=== PATIENT | male | born 1955 | race African-American/Black ===

== ENCOUNTER 2018-12-21 14:32 | Inpatient (IN) ==
[2018-12-21] MEDS ORDERED: PANTOPRAZOLE 40 MG VIAL IV STA (15:00)
[2018-12-21] MEDS ORDERED: SODIUM CHLORIDE 0.9% 1,000 ML IV PRN ×2 (15:01→15:46)
[2018-12-21 15:11] LABS: Basophils % 0.1 % (0.0-0.8); Immature Granulocytes Absolute 0.15 #; Lymphocytes # 0.8 10*3/uL (1.4-4.0); Lymphocytes % 5.2 % (21.2-54.2); Mean Corpuscular HGB Conc 24.8 GM/DL (32-36); Mean Corpuscular Volume 58.2 FL (87-102); Mean Platelet Volume 10.7 FL (9.6-12.0); Monocytes % 4.3 % (1.7-12.7); Neutrophils % 89.4 % (38.7-73.9); Platelet Count 476 T/CUMM (130-400); Red Blood Count 2.49 MC/CUMM (3.8-5.5); Red Cell Distribution Width 21.9 % (9.3-17.3); White Blood Count 15.1 T/CUMM (4-12)
[2018-12-21 15:16] LABS: Hematocrit 14.5 VOL% (42.0-52.0); Hemoglobin 3.6 GM/DL (14.0-18.0)
[2018-12-21 15:17] LABS: PT Patient Result 11.2 SECS (9.6-12.2); Partial Thromboplastin Time 22.2 SECS (20.8-36.0)
[2018-12-21] MEDS ORDERED: ZALEPLON 5 MG CAPSULE PO PRN (15:46)
[2018-12-21] MEDS ORDERED: MORPHINE 4 MG/1 ML VIAL IV PRN (15:46)
[2018-12-21] MEDS ORDERED: ONDANSETRON 4 MG/2 ML VIAL IV PRN (15:46)
[2018-12-21] MEDS ORDERED: ACETAMINOPHEN 325 MG TABLET PO PRN (15:46)
[2018-12-21] MEDS ORDERED: NICOTINE 21 MG/24 HR PATCH TRANSDERM PRN (15:46)
[2018-12-21 15:47] LABS: Alanine Aminotransferase 12 U/L (16-61); Alkaline Phosphatase 76 U/L (45-117); Aspartate Amino Transferase 14 U/L (0-37); Bilirubin,Total < 0.39 MG/DL (0.2-1.0); Blood Urea Nitrogen 10 MG/DL (7-18); Calcium 8.5 MG/DL (8.5-10.1); Estimated Glom Filtration Rate 100 ML/MIN; Glucose 116 MG/DL (74-106); Total Protein 7.7 G/DL (6.4-8.3)
[2018-12-21 15:57] LABS: Apearance,Urine CLEAR (Clear); Bilirubin,Urine Negative (Negative); Blood, Urine Negative (Negative); Glucose,Urine (UA) Negative (Negative); Hyaline Casts,Urine 1 /LPF (0-3); Ketones,Urine Negative (Negative); Mucus,Urine Occasional /LPF (Occasional); Nitrite,Urine Negative (Negative); Protein,Urine Negative; RBC,Urine 2 /HPF (0-4); Squamous Epithelial Cell,Urine Occasional /HPF (0-10); Urine Color Yellow (Yellow); Urine Specific Gravity 1.031 (1.001-1.035); WBC,Urine 9 /HPF (0-6)
[2018-12-21 16:25] LABS: ABG Base Excess -2.7 MMOL/L (-2.5-2.5); ABG HCO3 21.2 MMOL/L (20-26); ABG Oxygen Saturation 96.6 % (95-100); ABG PCO2 30.5 MM HG (35-48); ABG PH 7.459 (7.35-7.45); ABG PO2 87.3 MM HG (80-95); ABG TCO2 22.1 MMOL/L (23-27)
[2018-12-21] MEDS: PIPERACILLIN/TAZOBACTAM 3,375 MG in SODIUM CHLORIDE 0.9% 100 ML IV SCH ×2 (16:34→23:55)
[2018-12-21] MEDS: SODIUM CHLORIDE 0.9% 1,000 ML IV SCH (17:22)
[2018-12-21] MEDS ORDERED: VANCOMYCIN INJ 1,000 MG in SODIUM CHLORIDE 0.9% 250 ML IV ONE (20:00)
[2018-12-21] MEDS: PANTOPRAZOLE 40 MG VIAL IV SCH (20:18)
[2018-12-21 20:47] LABS: Hematocrit 19.7 VOL% (42.0-52.0); Platelet Count 375 T/CUMM (130-400)
[2018-12-21 20:51] LABS: Hemoglobin 5.7 GM/DL (14.0-18.0)
[2018-12-22] MEDS: SODIUM CHLORIDE 0.9% 1,000 ML IV SCH ×4 (01:22→18:15)
[2018-12-22 03:26] LABS: Basophils % 0.4 % (0.0-0.8); Eosinophils % 0.1 % (0.00-10.9); Hematocrit 23.5 VOL% (42.0-52.0); Immature Granulocytes % 0.5 %; Immature Granulocytes Absolute 0.05 #; Lymphocytes # 1.6 10*3/uL (1.4-4.0); Lymphocytes % 16.1 % (21.2-54.2); Mean Corpuscular HGB Conc 29.8 GM/DL (32-36); Mean Corpuscular Volume 71.9 FL (87-102); Mean Platelet Volume 10.1 FL (9.6-12.0); Monocytes % 7.7 % (1.7-12.7); Neutrophils % 75.2 % (38.7-73.9); Platelet Count 309 T/CUMM (130-400); Red Blood Count 3.27 MC/CUMM (3.8-5.5); White Blood Count 9.6 T/CUMM (4-12)
[2018-12-22 03:47] LABS: PT Patient Result 11.2 SECS (9.6-12.2); Partial Thromboplastin Time 29.5 SECS (20.8-36.0)
[2018-12-22 04:02] LABS: % Iron Saturation 51.8 % (18-50); Ferritin 6.7 ng/ml (26-388)
[2018-12-22 04:07] LABS: Albumin 2.3 G/DL (3.4-5.0); Bilirubin,Total 1.7 MG/DL (0.2-1.0); Calcium 7.9 MG/DL (8.5-10.1); Osmolality,Calculated 276.4 MOS/KG (273-304); Risk Ratio 3.13; Thyroid Stimulating Hormone 1.68 uIU/ml (0.358-3.74); VLDL CHOLESTEROL 11.8 MG/DL
[2018-12-22 04:33] LABS: Hypochromasia 2+; Platelet Estimate Adequate
[2018-12-22 05:10] LABS: Folate 5.2 NG/ML (5.4-24.0)
[2018-12-22 05:40] LABS: Cancer Antigen 19-9 2.3 U/ML (0-37)
[2018-12-22] MEDS: PIPERACILLIN/TAZOBACTAM 3,375 MG in SODIUM CHLORIDE 0.9% 100 ML IV SCH ×3 (09:44→23:49)
[2018-12-22] MEDS: PANTOPRAZOLE 40 MG VIAL IV SCH ×2 (09:45→20:52)
[2018-12-22] MEDS: VANCOMYCIN INJ 750 MG in SODIUM CHLORIDE 0.9% 250 ML IV SCH ×2 (09:45→20:51)
[2018-12-22] MEDS: FOLIC ACID 1 MG TABLET PO SCH (09:46)
[2018-12-22] MEDS: MULTIVITAMIN (CENTRUM) TABLET PO SCH (09:46)
[2018-12-22] MEDS: THIAMINE 200 MG/2 ML VIAL IV SCH (10:01)
[2018-12-22 10:44] LABS: Hematocrit 29.8 VOL% (42.0-52.0)
[2018-12-23 04:58] LABS: Basophils % 0.4 % (0.0-0.8); Hematocrit 30.5 VOL% (42.0-52.0); Hemoglobin 9.2 GM/DL (14.0-18.0); Immature Granulocytes % 0.7 %; Immature Granulocytes Absolute 0.07 #; Lymphocytes # 1.3 10*3/uL (1.4-4.0); Lymphocytes % 13.2 % (21.2-54.2); Mean Corpuscular HGB Conc 30.2 GM/DL (32-36); Mean Corpuscular Volume 75.5 FL (87-102); Mean Platelet Volume 9.8 FL (9.6-12.0); Monocytes % 7.8 % (1.7-12.7); NRBC # 0.02 10*3/uL; Neutrophils % 77.9 % (38.7-73.9); Platelet Count 263 T/CUMM (130-400); Red Blood Count 4.04 MC/CUMM (3.8-5.5)
[2018-12-23 05:05] LABS: PT Patient Result 10.9 SECS (9.6-12.2)
[2018-12-23 05:21] LABS: Alanine Aminotransferase < 9 U/L (16-61); Albumin 2.2 G/DL (3.4-5.0); Alkaline Phosphatase 58 U/L (45-117); Aspartate Amino Transferase 9 U/L (0-37); Blood Urea Nitrogen 5 MG/DL (7-18); Calcium 7.6 MG/DL (8.5-10.1); Estimated Glom Filtration Rate 117 ML/MIN; Glucose 84 MG/DL (74-106); Osmolality,Calculated 274.4 MOS/KG (273-304); Total Protein 5.8 G/DL (6.4-8.3)
[2018-12-23 05:32] LABS: Hypochromasia 1+
[2018-12-23 05:33] LABS: Platelet Estimate Adequate
[2018-12-23] MEDS: PIPERACILLIN/TAZOBACTAM 3,375 MG in SODIUM CHLORIDE 0.9% 100 ML IV SCH ×3 (07:59→23:53)
[2018-12-23] MEDS: PANTOPRAZOLE 40 MG VIAL IV SCH ×2 (08:35→20:50)
[2018-12-23] MEDS: FOLIC ACID 1 MG TABLET PO SCH (08:36)
[2018-12-23] MEDS: MULTIVITAMIN (CENTRUM) TABLET PO SCH (08:36)
[2018-12-23] MEDS: THIAMINE 200 MG/2 ML VIAL IV SCH (08:37)
[2018-12-23] MEDS: SODIUM CHLORIDE 0.9% 1,000 ML IV SCH (11:23)
[2018-12-23] MEDS: VANCOMYCIN INJ 750 MG in SODIUM CHLORIDE 0.9% 250 ML IV SCH ×2 (11:25→23:54)
[2018-12-23] MEDS ORDERED: MAGNESIUM SULF RIDER 4 GM in PREMIX 1 EACH IV PRN (13:50)
[2018-12-23] MEDS: MAGNESIUM SULF RIDER 2 GM in PREMIX 1 EACH IV PRN (14:20)
[2018-12-24] MEDS: SODIUM CHLORIDE 0.9% 1,000 ML IV SCH ×3 (03:47→16:00)
[2018-12-24 04:36] LABS: Basophils # 0.1 10*3/uL (0.0-0.2); Basophils % 0.6 % (0.0-0.8); Eosinophils % 0.2 % (0.00-10.9); Hemoglobin 9.3 GM/DL (14.0-18.0); Immature Granulocytes % 0.6 %; Immature Granulocytes Absolute 0.07 #; Lymphocytes # 1.5 10*3/uL (1.4-4.0); Lymphocytes % 11.8 % (21.2-54.2); Mean Corpuscular Volume 74.6 FL (87-102); Monocytes % 8.8 % (1.7-12.7); Platelet Count 291 T/CUMM (130-400); Red Blood Count 4.02 MC/CUMM (3.8-5.5); White Blood Count 12.6 T/CUMM (4-12)
[2018-12-24 04:38] LABS: INR 1.1; PT Patient Result 11.5 SECS (9.6-12.2)
[2018-12-24 04:50] LABS: Alanine Aminotransferase < 9 U/L (16-61); Albumin 2.1 G/DL (3.4-5.0); Alkaline Phosphatase 57 U/L (45-117); Aspartate Amino Transferase 10 U/L (0-37); Blood Urea Nitrogen 2 MG/DL (7-18); Calcium 7.5 MG/DL (8.5-10.1); Estimated Glom Filtration Rate 123 ML/MIN; Glucose 86 MG/DL (74-106); Osmolality,Calculated 269.7 MOS/KG (273-304); Total Protein 5.8 G/DL (6.4-8.3)
[2018-12-24 04:55] LABS: Hypochromasia 1+; Platelet Estimate Adequate
[2018-12-24] MEDS: PIPERACILLIN/TAZOBACTAM 3,375 MG in SODIUM CHLORIDE 0.9% 100 ML IV SCH (08:45)
[2018-12-24] MEDS: FOLIC ACID 1 MG TABLET PO SCH (08:48)
[2018-12-24] MEDS: THIAMINE 200 MG/2 ML VIAL IV SCH (08:48)
[2018-12-24] MEDS: MULTIVITAMIN (CENTRUM) TABLET PO SCH (08:48)
[2018-12-24] MEDS: PANTOPRAZOLE 40 MG VIAL IV SCH (08:49)
[2018-12-24] MEDS: MAGNESIUM SULF RIDER 2 GM in PREMIX 1 EACH IV PRN (09:20)
[2018-12-24] MEDS: POTASSIUM CHLORIDE 20 MEQ TABLET PO PRN ×3 (09:21→13:53)
[2018-12-24] MEDS ORDERED: VANCOMYCIN INJ 1,000 MG in SODIUM CHLORIDE 0.9% 250 ML IV SCH (12:00)
[2018-12-24] MEDS ORDERED: POLYETHYLENE GLYCOL POWDER 255 GM BOTTLE PO ONE (12:00)
[2018-12-24] MEDS ORDERED: BISACODYL 5 MG TABLET PO ONE ×2 (12:00)
[2018-12-24] MEDS ORDERED: POTASSIUM CHLORIDE 20 MEQ TABLET PO ONE (14:13)
[2018-12-24] MEDS ORDERED: CYANOCOBALAMIN 1000 MCG/1 ML VIAL IM ONE (14:38)
[2018-12-24] MEDS: cefTRIAXone 2,000 MG in SYRINGE 1 EACH IV SCH (15:47)
[2018-12-24] MEDS ORDERED: POLYETHYLENE GLYCOL 3350/ELECTROLYTES 4,000 ML BOTTLE PO ONE (18:00)
[2018-12-25 04:36] LABS: Basophils # 0.1 10*3/uL (0.0-0.2); Basophils % 0.6 % (0.0-0.8); Eosinophils % 0.4 % (0.00-10.9); Hematocrit 29.4 VOL% (42.0-52.0); Immature Granulocytes % 0.5 %; Immature Granulocytes Absolute 0.05 #; Lymphocytes # 1.5 10*3/uL (1.4-4.0); Lymphocytes % 15.3 % (21.2-54.2); Mean Corpuscular HGB Conc 30.6 GM/DL (32-36); Mean Corpuscular Volume 76.2 FL (87-102); Mean Platelet Volume 10.4 FL (9.6-12.0); Monocytes % 9.7 % (1.7-12.7); Neutrophils % 73.5 % (38.7-73.9); Platelet Count 303 T/CUMM (130-400); Red Blood Count 3.86 MC/CUMM (3.8-5.5); White Blood Count 10.1 T/CUMM (4-12)
[2018-12-25 05:00] LABS: Alanine Aminotransferase < 9 U/L (16-61); Albumin 2.1 G/DL (3.4-5.0); Alkaline Phosphatase 56 U/L (45-117); Aspartate Amino Transferase 9 U/L (0-37); Blood Urea Nitrogen 3 MG/DL (7-18); Estimated Glom Filtration Rate 125 ML/MIN; Glucose 86 MG/DL (74-106); Osmolality,Calculated 272.5 MOS/KG (273-304); Total Protein 5.9 G/DL (6.4-8.3)
[2018-12-25] MEDS ORDERED: POLYETHYLENE GLYCOL POWDER 255 GM BOTTLE PO ONE (08:43)
[2018-12-25] MEDS: THIAMINE 100 MG TABLET PO SCH (10:04)
[2018-12-25] MEDS: FOLIC ACID 1 MG TABLET PO SCH (10:04)
[2018-12-25] MEDS: CYANOCOBALAMIN 500 MCG TABLET PO SCH (10:04)
[2018-12-25] MEDS: PANTOPRAZOLE 40 MG TABLET PO SCH (10:04)
[2018-12-25] MEDS: MULTIVITAMIN (CENTRUM) TABLET PO SCH (10:04)
[2018-12-25 14:35] LABS: PT Patient Result 11.1 SECS (9.6-12.2)
[2018-12-25] MEDS: cefTRIAXone 2,000 MG in SYRINGE 1 EACH IV SCH (17:30)
[2018-12-26] MEDS: LACTATED RINGERS 1,000 ML IV SCH ×2 (08:56→20:00)
[2018-12-26] MEDS ORDERED: PROPOFOL 200 MG/20 ML VIAL IV ONE (10:00)
[2018-12-26] MEDS ORDERED: LIDOCAINE 100 MG/5 ML SYRINGE ONE (10:00)
[2018-12-26] MEDS: VANCOMYCIN INJ 1,000 MG in SODIUM CHLORIDE 0.9% 250 ML IV SCH (13:45)
[2018-12-26] MEDS: FOLIC ACID 1 MG TABLET PO SCH (13:49)
[2018-12-26] MEDS: PANTOPRAZOLE 40 MG TABLET PO SCH (13:49)
[2018-12-26] MEDS: CYANOCOBALAMIN 500 MCG TABLET PO SCH (13:49)
[2018-12-26] MEDS: THIAMINE 100 MG TABLET PO SCH (13:49)
[2018-12-26] MEDS: MULTIVITAMIN (CENTRUM) TABLET PO SCH (13:49)
[2018-12-26] MEDS: amLODIPine 10 MG TABLET PO SCH (13:49)
[2018-12-26] MEDS: cefTRIAXone 2,000 MG in SYRINGE 1 EACH IV SCH (16:09)
[2018-12-27] MEDS: VANCOMYCIN INJ 1,000 MG in SODIUM CHLORIDE 0.9% 250 ML IV SCH ×2 (02:00→13:22)
[2018-12-27 10:30] LABS: Basophils # 0.1 10*3/uL (0.0-0.2); Basophils % 1.6 % (0.0-0.8); Eosinophils % 0.4 % (0.00-10.9); Hematocrit 32.6 VOL% (42.0-52.0); Immature Granulocytes % 0.4 %; Immature Granulocytes Absolute 0.03 #; Lymphocytes # 1.2 10*3/uL (1.4-4.0); Lymphocytes % 15.7 % (21.2-54.2); Mean Corpuscular HGB Conc 28.8 GM/DL (32-36); Mean Corpuscular Volume 79.7 FL (87-102); Monocytes % 9.8 % (1.7-12.7); Neutrophils % 72.1 % (38.7-73.9); Platelet Count 354 T/CUMM (130-400); Red Blood Count 4.09 MC/CUMM (3.8-5.5); White Blood Count 7.7 T/CUMM (4-12)
[2018-12-27 10:34] LABS: Hemoglobin 9.4 GM/DL (14.0-18.0)
[2018-12-27 10:38] LABS: Hypochromasia 1+; Ovalocytes Slight; Platelet Estimate Adequate
[2018-12-27] MEDS: amLODIPine 10 MG TABLET PO SCH (11:11)
[2018-12-27] MEDS: CYANOCOBALAMIN 500 MCG TABLET PO SCH (11:11)
[2018-12-27] MEDS: MULTIVITAMIN (CENTRUM) TABLET PO SCH (11:11)
[2018-12-27] MEDS: THIAMINE 100 MG TABLET PO SCH (11:11)
[2018-12-27] MEDS: FOLIC ACID 1 MG TABLET PO SCH (11:11)
[2018-12-27] MEDS: PANTOPRAZOLE 40 MG TABLET PO SCH (11:11)
[2018-12-27] MEDS: FERROUS SULFATE 325 MG TABLET PO SCH (11:12)
[2018-12-27] MEDS: cefTRIAXone 2,000 MG in SYRINGE 1 EACH IV SCH (16:48)
[2018-12-28] MEDS: VANCOMYCIN INJ 1,000 MG in SODIUM CHLORIDE 0.9% 250 ML IV SCH ×2 (01:15→13:33)
[2018-12-28] MEDS: LACTATED RINGERS 1,000 ML IV SCH (04:40)
[2018-12-28] MEDS ORDERED: BUPIVACAINE MPF 0.25% 30 ML VIAL ONE (06:40)
[2018-12-28] MEDS ORDERED: LIDOCAINE 1% 20 ML VIAL ONE (06:40)
[2018-12-28] MEDS ORDERED: HEPARIN 5,000 UNIT/1 ML VIAL ONE (06:40)
[2018-12-28] MEDS ORDERED: ceFAZolin 1,000 MG VIAL ONE (07:39)
[2018-12-28] MEDS ORDERED: TISSUE ADHESIVE 1 EACH APPLICATOR TOP ONE (08:00)
[2018-12-28] MEDS ORDERED: MIDAZOLAM 2 MG/2 ML VIAL ONE (08:19)
[2018-12-28] MEDS ORDERED: SODIUM CHLORIDE 0.9% 100 ML IV ONE (08:20)
[2018-12-28] MEDS ORDERED: fentaNYL 100 MCG/2 ML VIAL ONE (08:20)
[2018-12-28] MEDS ORDERED: PROPOFOL 200 MG/20 ML VIAL IV ONE (08:20)
[2018-12-28] MEDS ORDERED: ETOMIDATE 40 MG/20 ML VIAL IV ONE (08:20)
[2018-12-28] MEDS: FOLIC ACID 1 MG TABLET PO SCH (09:13)
[2018-12-28] MEDS: FERROUS SULFATE 325 MG TABLET PO SCH (09:14)
[2018-12-28] MEDS: amLODIPine 10 MG TABLET PO SCH (09:14)
[2018-12-28] MEDS: PANTOPRAZOLE 40 MG TABLET PO SCH (09:14)
[2018-12-28] MEDS: THIAMINE 100 MG TABLET PO SCH (09:14)
[2018-12-28] MEDS: MULTIVITAMIN (CENTRUM) TABLET PO SCH (09:14)
[2018-12-28] MEDS: CYANOCOBALAMIN 500 MCG TABLET PO SCH (09:14)
[2018-12-29] MEDS: VANCOMYCIN INJ 1,000 MG in SODIUM CHLORIDE 0.9% 250 ML IV SCH ×2 (01:00→14:39)
[2018-12-29] MEDS: LACTATED RINGERS 1,000 ML IV SCH ×2 (02:23→08:36)
[2018-12-29 04:55] LABS: Basophils # 0.1 10*3/uL (0.0-0.2); Basophils % 0.6 % (0.0-0.8); Eosinophils % 0.2 % (0.00-10.9); Hematocrit 27.6 VOL% (42.0-52.0); Hemoglobin 8.2 GM/DL (14.0-18.0); Immature Granulocytes % 0.3 %; Immature Granulocytes Absolute 0.03 #; Lymphocytes # 1.5 10*3/uL (1.4-4.0); Lymphocytes % 16.5 % (21.2-54.2); Mean Corpuscular HGB Conc 29.7 GM/DL (32-36); Monocytes % 10.1 % (1.7-12.7); Neutrophils % 72.3 % (38.7-73.9); Platelet Count 393 T/CUMM (130-400); Red Blood Count 3.63 MC/CUMM (3.8-5.5); White Blood Count 9.3 T/CUMM (4-12)
[2018-12-29 05:21] LABS: Calcium 8.6 MG/DL (8.5-10.1); Osmolality,Calculated 279.3 MOS/KG (273-304)
[2018-12-29 05:59] LABS: Anisocytosis 1+; Band Neutrophils 2 % (0-10); Eosinophils 8 % (0-10); Hypochromasia 1+; Lymphocytes 15 % (20-55); Myelocytes 1 %; Segmented Neutrophils 67 % (50-85); Total Cells Counted 100
[2018-12-29 06:00] LABS: Acanthocytes Few; Platelet Estimate Adequate; Target Cells 1+
[2018-12-29] MEDS: MULTIVITAMIN (CENTRUM) TABLET PO SCH (08:37)
[2018-12-29] MEDS: FERROUS SULFATE 325 MG TABLET PO SCH (08:37)
[2018-12-29] MEDS: FOLIC ACID 1 MG TABLET PO SCH (08:37)
[2018-12-29] MEDS: THIAMINE 100 MG TABLET PO SCH (08:37)
[2018-12-29] MEDS: PANTOPRAZOLE 40 MG TABLET PO SCH (08:37)
[2018-12-29] MEDS: CYANOCOBALAMIN 500 MCG TABLET PO SCH (08:37)
[2018-12-29] MEDS: amLODIPine 10 MG TABLET PO SCH (08:37)
[2018-12-29] MEDS ORDERED: PALONOSETRON 0.25 MG/5 ML VIAL IV ONE (10:00)
[2018-12-29] MEDS ORDERED: DEXAMETHASONE 10 MG/1 ML VIAL IV ONE (10:00)
[2018-12-29] MEDS ORDERED: FLUOROURACIL 800 MG in SYRINGE 1 EACH IV ONE (10:30)
[2018-12-29] MEDS ORDERED: LEUCOVORIN INJ 700 MG in DEXTROSE 5% 250 ML IV ONE (10:30)
[2018-12-29] MEDS ORDERED: OXALIPLATIN 150 MG in DEXTROSE 5% 250 ML IV ONE (10:30)
[2018-12-29] MEDS ORDERED: FLUOROURACIL IV ONE (12:00)
[2018-12-29] MEDS: FLUOROURACIL 2,000 MG in SODIUM CHLORIDE 0.9% 1,000 ML IV SCH (16:25)
[2018-12-29] MEDS: VANCOMYCIN INJ 1,250 MG in SODIUM CHLORIDE 0.9% 250 ML IV SCH (17:29)
[2018-12-30] MEDS: VANCOMYCIN INJ 1,250 MG in SODIUM CHLORIDE 0.9% 250 ML IV SCH ×2 (05:10→17:05)
[2018-12-30] MEDS: FERROUS SULFATE 325 MG TABLET PO SCH (09:21)
[2018-12-30] MEDS: CYANOCOBALAMIN 500 MCG TABLET PO SCH (09:21)
[2018-12-30] MEDS: amLODIPine 10 MG TABLET PO SCH (09:21)
[2018-12-30] MEDS: MULTIVITAMIN (CENTRUM) TABLET PO SCH (09:21)
[2018-12-30] MEDS: FOLIC ACID 1 MG TABLET PO SCH (09:21)
[2018-12-30] MEDS: PANTOPRAZOLE 40 MG TABLET PO SCH (09:21)
[2018-12-30] MEDS: THIAMINE 100 MG TABLET PO SCH (09:21)
[2018-12-30] MEDS: LACTATED RINGERS 1,000 ML IV SCH (09:23)
[2018-12-30] MEDS: FLUOROURACIL 2,000 MG in SODIUM CHLORIDE 0.9% 1,000 ML IV SCH (15:58)
[2018-12-30] MEDS: POLYETHYLENE GLYCOL POWDER 17 GM PACK PO SCH (18:58)
[2018-12-30] MEDS ORDERED: BISACODYL 5 MG TABLET PO SCH (21:00)
[2018-12-31] MEDS: VANCOMYCIN INJ 1,250 MG in SODIUM CHLORIDE 0.9% 250 ML IV SCH ×2 (05:45→17:36)
[2018-12-31] MEDS: amLODIPine 10 MG TABLET PO SCH (08:51)
[2018-12-31] MEDS: FOLIC ACID 1 MG TABLET PO SCH (08:51)
[2018-12-31] MEDS: CYANOCOBALAMIN 500 MCG TABLET PO SCH (08:51)
[2018-12-31] MEDS: MULTIVITAMIN (CENTRUM) TABLET PO SCH (08:51)
[2018-12-31] MEDS: FERROUS SULFATE 325 MG TABLET PO SCH (08:51)
[2018-12-31] MEDS: PANTOPRAZOLE 40 MG TABLET PO SCH (08:51)
[2018-12-31] MEDS: THIAMINE 100 MG TABLET PO SCH (08:51)
[2018-12-31] MEDS: POLYETHYLENE GLYCOL POWDER 17 GM PACK PO SCH (08:52)
[2018-12-31] MEDS ORDERED: FILGRASTIM-SNDZ 300 MCG/0.5 ML SYRINGE SUBCUT SCH (09:00)
[2018-12-31] MEDS: LACTATED RINGERS 1,000 ML IV SCH (12:12)
[2018-12-31 17:39] VITALS: BP 129/59
== END 2018-12-31 17:47 | disposition home or self-care (01) | DRG 981 ==
LOC: EDBD → EDUNIT# → N.ED 14:32 → SUATTDRO 16:29 → N.EDINP 16:29 → N.CC 17:13 → N.4E 12-22 11:51
PROVIDERS: ADMIT Internal Medicine; ATTEND Internal Medicine

== ENCOUNTER 2019-01-30 08:04 | Inpatient (IN) ==
[2019-01-30] MEDS ORDERED: chlorproMAZINE 25 MG TABLET PO PRN (08:44)
[2019-01-30] MEDS ORDERED: diphenhydrAMINE CAP 25 MG CAPSULE PO PRN (08:44)
[2019-01-30] MEDS ORDERED: ONDANSETRON 4 MG/2 ML VIAL IV PRN (08:44)
[2019-01-30] MEDS ORDERED: LOPERAMIDE 2 MG CAPSULE PO PRN ×2 (08:44)
[2019-01-30] MEDS ORDERED: TEMAZEPAM 7.5 MG CAPSULE PO PRN (08:44)
[2019-01-30] MEDS ORDERED: chlorproMAZINE INJ 50 MG in SODIUM CHLORIDE 0.9% 100 ML IV PRN (08:44)
[2019-01-30] MEDS ORDERED: ALPRAZolam 0.25 MG TABLET PO PRN (08:44)
[2019-01-30] MEDS ORDERED: MAGNESIUM HYDROXIDE SUSP 30 ML UDCUP PO PRN (08:44)
[2019-01-30] MEDS ORDERED: ACETAMINOPHEN 325 MG TABLET PO PRN (08:44)
[2019-01-30] MEDS ORDERED: LACTULOSE 20 GM/30 ML UDCUP PO PRN (08:44)
[2019-01-30] MEDS ORDERED: ALUMINUM/MAGNES/SIMETH MAX STR 30 ML UDCUP PO PRN (08:44)
[2019-01-30] MEDS ORDERED: guaiFENesin 200 MG/10 ML UDCUP PO PRN (08:44)
[2019-01-30] MEDS ORDERED: MYLANTA/LIDO VISC 2:1 300 ML BOTTLE SWISH/SPIT PRN (08:44)
[2019-01-30] MEDS ORDERED: MYLANTA/LIDO VISC 2:1 300 ML BOTTLE SWISH/SWAL PRN (08:44)
[2019-01-30] MEDS ORDERED: BENZTROPINE 2 MG/2 ML AMP IV PRN (08:44)
[2019-01-30] MEDS ORDERED: traMADol 50 MG TABLET PO PRN (08:44)
[2019-01-30] MEDS ORDERED: chlorproMAZINE INJ 25 MG in SODIUM CHLORIDE 0.9% 100 ML IV PRN (08:44)
[2019-01-30] MEDS ORDERED: PROMETHAZINE INJ 25 MG in SODIUM CHLORIDE 0.9% 50 ML IV PRN (08:44)
[2019-01-30 09:16] LABS: Basophils % 0.4 % (0.0-0.8); Eosinophils # 0.1 10*3/uL (0.0-0.87); Eosinophils % 0.7 % (0.00-10.9); Hematocrit 29.3 VOL% (42.0-52.0); Hemoglobin 8.7 GM/DL (14.0-18.0); Immature Granulocytes % 0.3 %; Immature Granulocytes Absolute 0.02 #; Lymphocytes # 0.9 10*3/uL (1.4-4.0); Lymphocytes % 13.3 % (21.2-54.2); Mean Corpuscular HGB Conc 29.7 GM/DL (32-36); Mean Corpuscular Volume 76.5 FL (87-102); Mean Platelet Volume 9.2 FL (9.6-12.0); Monocytes % 13.8 % (1.7-12.7); Neutrophils % 71.5 % (38.7-73.9); Platelet Count 310 T/CUMM (130-400); Red Blood Count 3.83 MC/CUMM (3.8-5.5); Red Cell Distribution Width 26.5 % (9.3-17.3)
[2019-01-30 09:36] LABS: Eosinophils 6 % (0-10); Lymphocytes 12 % (20-55); Platelet Estimate Adequate; Segmented Neutrophils 74 % (50-85); Total Cells Counted 100
[2019-01-30 09:37] LABS: Hypochromasia 1+
[2019-01-30 09:55] LABS: Albumin 3.6 G/DL (3.4-5.0); Bilirubin,Total 0.5 MG/DL (0.2-1.0); Calcium 9.5 MG/DL (8.5-10.1); Total Protein 8.6 G/DL (6.4-8.3)
[2019-01-30] MEDS ORDERED: DEXAMETHASONE 10 MG/1 ML VIAL IV ONE (11:00)
[2019-01-30] MEDS ORDERED: PALONOSETRON 0.25 MG/5 ML VIAL IV ONE (11:00)
[2019-01-30] MEDS ORDERED: FLUOROURACIL IV ONE (11:00)
[2019-01-30] MEDS ORDERED: LEUCOVORIN INJ 700 MG in DEXTROSE 5% 250 ML IV ONE (12:00)
[2019-01-30] MEDS ORDERED: OXALIPLATIN 150 MG in DEXTROSE 5% 250 ML IV ONE (12:00)
[2019-01-30 14:17] LABS: Apearance,Urine Clear (Clear); Bacteria,Urine Occasional /HPF (Few); Bilirubin,Urine Negative (Negative); Blood, Urine NEGATIVE (Negative); Glucose,Urine (UA) Negative (Negative); Ketones,Urine Negative (Negative); Mucus,Urine Occasional /LPF (Occasional); Nitrite,Urine Negative (Negative); Protein,Urine Negative; RBC,Urine 12 /HPF (0-4); Squamous Epithelial Cell,Urine Occasional /HPF (0-10); Urine Color Amber (Yellow); WBC,Urine 58 /HPF (0-6)
[2019-01-30] MEDS: FLUOROURACIL 2,000 MG in SODIUM CHLORIDE 0.9% 1,000 ML IV SCH (16:52)
[2019-01-31] MEDS: ASCORBIC ACID 500 MG TABLET PO SCH (10:19)
[2019-01-31] MEDS: FERROUS SULFATE 325 MG TABLET PO SCH (10:19)
[2019-01-31] MEDS: FLUOROURACIL 2,000 MG in SODIUM CHLORIDE 0.9% 1,000 ML IV SCH (16:42)
[2019-02-01] MEDS: ASCORBIC ACID 500 MG TABLET PO SCH (09:48)
[2019-02-01] MEDS: FERROUS SULFATE 325 MG TABLET PO SCH (09:48)
[2019-02-01] MEDS ORDERED: HEPARIN LOCK FLUSH 500 UNIT/5 ML SYRINGE IV ONE (16:22)
[2019-02-01 16:44] VITALS: BP 105/64
== END 2019-02-01 17:35 | disposition home or self-care (01) | DRG 696 ==
LOC: N.4E
PROVIDERS: ADMIT Specialist; ATTEND Specialist